=== PATIENT | female | born 1960 | race Caucasian/White ===

== ENCOUNTER 2021-07-28 12:38 | Outpatient (CLI) | payer OTHER, SELFPAY ==
--- NOTE | 2021-07-28 13:00 | MR_ITS ---
WS: [id number] MRI HEAD WITHOUT CONTRAST TECHNIQUE: Sagittal T1, T2 axial, T2 axial FLAIR, axial and coronal T1 images, axial susceptibility w eighted imaging, axial diffusion weighted images, and coronal T2 images were obtained. CLINICAL INFORMATION: R41.82 - Altered mental status, unspecified COMPARISON: None. FINDINGS: No evidence restricted diffusion to suggest acute ischemia. Ventricular system and basal cisterns are patent. Normal posterior fossa. Normal vascular flow voids skull base. No extra-axial fluid collecti ons. No evidence of mass or mass effect. Mild mucosal thickening ethmoid air cells. Mastoid air cells well aerated. Normal visualized orbits. No suspicious intracranial signal abnormalities. 2 or 3 tiny foci of T2 hyperintensity in the subcort ical and periventricular white matter. No significant parenchymal volume loss. No hemosiderin on the susceptibly weighted images. Normal optic chiasm and pituitary infundibulum. Temporal lobes and hippo campal formations are normal in appearance. Normal optic chiasm and pituitary infundibulum. Normal ca vernous sinuses and Meckel's cave. MR/MR head wo con* [id number] IMPRESSION: 1. No evidence of restricted diffusion to suggest acute ischemia. 2. No suspicious intracranial signal abnormalities. No significant parenchymal volume loss. 3. No hemosiderin on susceptibly weighted images. 4. Temporal lobes and hippocampal formations are normal in appearance. 5. Normal optic chiasm and pituitary infundibulum. 6. No other significant findings.
== END 2021-07-28 12:39 | disposition home or self-care (01) ==
PROVIDERS: Visit Provider Specialist
DX: R41.82 Altered mental status, unspecified (principal)
CPT/HCPCS: 70551

== ENCOUNTER → 2022-05-01 08:32 | Outpatient (BNVA) | payer OTHER, SELFPAY | PROVIDERS: PCP Nurse Practitioner Family; Referring Provider Nurse Practitioner Family; Visit Provider Specialist | DX: V43.53XA Car driver injured in collision with pick-up truck in traffic accident, initial encounter (principal); S69.91XA Unspecified injury of right wrist, hand and finger(s), initial encounter | CPT/HCPCS: 73110 ==

== ENCOUNTER 2022-05-01 14:29 | Outpatient (CLI) | payer SELFPAY | END 2022-05-01 14:30 | disposition home or self-care (01) | LOC: SPT 14:30 | PROVIDERS: PCP Nurse Practitioner Family; Visit Provider Specialist | DX: Z46.89 Encounter for fitting and adjustment of other specified devices (principal); M67.439 Ganglion, unspecified wrist; M65.4 Radial styloid tenosynovitis [de Quervain]; S69.91XD Unspecified injury of right wrist, hand and finger(s), subsequent encounter; X58.XXXD Exposure to other specified factors, subsequent encounter | CPT/HCPCS: 97760; L3807 ==